=== PATIENT | female | born 1955 | race Caucasian/White ===

== ENCOUNTER 2024-02-18 07:13 | Inpatient (IN) ==
[2024-02-18] MEDS ORDERED: IOPAMIDOL 100 ML BOTTLE IV ONE (07:14)
[2024-02-18] MEDS: methylPREDNISolone SOD SUCC 125 MG/2 ML VIAL IV ONE (07:46)
[2024-02-18 08:02] LABS: Basophils # (Auto) 0.01 K/mcL (0.00-0.30); Basophils % (Auto) 0.1 % (0.0-2.0); Eosinophils # (Auto) 0.04 K/mcL (0.00-0.70); Eosinophils % (Auto) 0.5 % (0.0-7.0); Hematocrit 40.8 % (34.1-44.9); Hemoglobin 13.7 g/dL (11.2-15.7); Lymphocytes # (Auto) 0.69 K/mcL (1.50-4.80); Lymphocytes % (Auto) 8.1 % (15.5-49.0); Mean Cell Volume 95.3 fL (80.0-100.0); Mean Corpuscular HGB Conc 33.6 g/dL (31.0-36.0); Mean Platelet Volume 9.3 fL (8.8-12.5); Monocytes # (Auto) 0.67 K/mcL (0.10-0.90); Monocytes % (Auto) 7.9 % (1.0-12.0); Neutrophils % (Auto) 83.2 % (38.0-78.0); Platelet Count 324 K/mcL (140-440); RBC 4.28 M/mcL (3.59-5.38); Red Cell Distribution Width 12.6 % (11.5-14.5); WBC 8.5 K/mcL (4.5-11.0)
[2024-02-18 08:13] LABS: ALT/SGPT 28 U/L (<40); AST/SGOT 25 U/L (<32); Albumin 3.6 gm/dL (3.2-5.2); Albumin/Globulin Ratio 1.2 (1.0-2.3); Alkaline Phosphatase 83 U/L (39-117); Bilirubin,Total 0.6 mg/dL (0.1-1.0); Blood Urea Nitrogen 12 mg/dL (8-23); Calcium 8.8 mg/dL (8.6-10.4); Carbon Dioxide 28 mmol/L (22-30); Chloride 100 mmol/L (96-108); Globulin 3.1 gm/dL (2.2-3.7); Glomerular Filtration Rate 100; Glucose 138 mg/dL (70-105)
[2024-02-18] MEDS: IPRATROPIUM/ALBUTEROL 3 ML AMPUL.NEB NEB ONE ×3 (08:15→10:36)
[2024-02-18] MEDS: cefTRIAXone 2 GM in DEXTROSE 5% IN WATER 50 ML IV ONE (09:05)
[2024-02-18] MEDS: AZITHROMYCIN 250 MG TABLET PO ONE (09:05)
[2024-02-18 09:19] LABS: ABG Methemoglobin 0.1 % (0.4-1.5); Total Hemoglobin 14.3 gm/Dl (12.0-15.0); VBG Base Excess 2 (-2-3); VBG HCO3 28.8 mmol/L (24.0-28.0); VBG Oxygen Saturation 60.2 % (40.0-70.0); VBG PCO2 51.6 mmHg (41.0-51.0); VBG PH 7.37 U (7.32-7.42); VBG PO2 31.6 mmHg (25.0-40.0); VBG Total CO2 30.4 mmol/L (25.0-29.0)
[2024-02-18] MEDS: diphenhydrAMINE 50 MG/ML VIAL ONE (09:36)
[2024-02-18] MEDS: diphenhydrAMINE 50 MG/ML VIAL IV ONE (09:36)
[2024-02-18] MEDS: OSELTAMIVIR PHOSPHATE 75 MG CAPSULE PO ONE (11:44)
[2024-02-18 14:02] LABS: C-Reactive Protein 9.62 mg/dL (0.03-0.80)
[2024-02-18] MEDS ORDERED: SENNOSIDES 1 TABLET PO PRN ×2 (15:14→15:30)
[2024-02-18] MEDS ORDERED: ONDANSETRON 4 MG/2 ML VIAL IV PRN (15:14)
[2024-02-18] MEDS ORDERED: MAGNESIUM HYDROXIDE 30 ML ORAL.SUSP PO PRN (15:14)
[2024-02-18] MEDS ORDERED: ACETAMINOPHEN 325 MG TABLET PO PRN (15:14)
[2024-02-18] MEDS: IPRATROPIUM/ALBUTEROL 3 ML AMPUL.NEB NEB SCH (16:12)
[2024-02-18 16:48] LABS: ALT/SGPT 28 U/L (<40); AST/SGOT 21 U/L (<32); Albumin 3.7 gm/dL (3.2-5.2); Albumin/Globulin Ratio 1.3 (1.0-2.3); Alkaline Phosphatase 82 U/L (39-117); Bilirubin,Total 0.3 mg/dL (0.1-1.0); Blood Urea Nitrogen 13 mg/dL (8-23); C-Reactive Protein 9.43 mg/dL (0.03-0.80); Calcium 9.6 mg/dL (8.6-10.4); Carbon Dioxide 29 mmol/L (22-30); Chloride 102 mmol/L (96-108); Globulin 2.9 gm/dL (2.2-3.7); Glomerular Filtration Rate 107; Glucose 174 mg/dL (70-105)
[2024-02-18] MEDS ORDERED: ENOXAPARIN 30 MG/0.3 ML SYRINGE SQ SCH (21:00)
[2024-02-18] MEDS: OSELTAMIVIR PHOSPHATE 75 MG CAPSULE PO SCH (21:59)
[2024-02-18] MEDS: ENOXAPARIN 40 MG/0.4 ML SYRINGE SQ SCH (21:59)
[2024-02-18] MEDS: MELATONIN 3 MG TABLET PO SCH (21:59)
[2024-02-18] MEDS: DOCUSATE SODIUM 100 MG CAPSULE PO SCH (22:00)
[2024-02-18] MEDS: 0.9 % SODIUM CHLORIDE 10 ML SYRINGE IV SCH (22:00)
[2024-02-19 06:52] LABS: C-Reactive Protein 6.46 mg/dL (0.03-0.80)
[2024-02-19 07:12] LABS: ALT/SGPT 25 U/L (<40); AST/SGOT 20 U/L (<32); Albumin 3.3 gm/dL (3.2-5.2); Albumin/Globulin Ratio 1.3 (1.0-2.3); Alkaline Phosphatase 74 U/L (39-117); Bilirubin,Total < 0.2 mg/dL (0.1-1.0); Blood Urea Nitrogen 19 mg/dL (8-23); Calcium 9.4 mg/dL (8.6-10.4); Carbon Dioxide 27 mmol/L (22-30); Chloride 103 mmol/L (96-108); Globulin 2.5 gm/dL (2.2-3.7); Glomerular Filtration Rate 107; Glucose 140 mg/dL (70-105)
[2024-02-19 07:26] LABS: Basophils # (Auto) 0 K/mcL (0.00-0.30); Basophils % (Auto) 0 % (0.0-2.0); Eosinophils # (Auto) 0 K/mcL (0.00-0.70); Eosinophils % (Auto) 0 % (0.0-7.0); Hematocrit 36.1 % (34.1-44.9); Lymphocytes # (Auto) 0.76 K/mcL (1.50-4.80); Mean Cell Volume 96.3 fL (80.0-100.0); Mean Corpuscular HGB Conc 33.2 g/dL (31.0-36.0); Mean Platelet Volume 9.8 fL (8.8-12.5); Monocytes # (Auto) 0.67 K/mcL (0.10-0.90); Monocytes % (Auto) 5.3 % (1.0-12.0); Neutrophils % (Auto) 88.5 % (38.0-78.0); Platelet Count 354 K/mcL (140-440); RBC 3.75 M/mcL (3.59-5.38); Red Cell Distribution Width 12.5 % (11.5-14.5); WBC 12.8 K/mcL (4.5-11.0)
[2024-02-19] MEDS: methylPREDNISolone SOD SUCC 40 MG/ML VIAL IV SCH ×2 (08:36→19:59)
[2024-02-19] MEDS: VILANTEROL INH SCH (08:37)
[2024-02-19] MEDS: FLUTICASONE FUROATE INH SCH (08:37)
[2024-02-19] MEDS: UMECLIDINIUM INH SCH (08:37)
[2024-02-19] MEDS: MELATONIN 3 MG TABLET PO SCH (19:41)
[2024-02-19] MEDS: SIMETHICONE 80 MG TAB.CHEW CHEWED SCH (21:01)
[2024-02-20 07:38] LABS: Basophils # (Auto) 0.01 K/mcL (0.00-0.30); Basophils % (Auto) 0.1 % (0.0-2.0); Eosinophils # (Auto) 0 K/mcL (0.00-0.70); Eosinophils % (Auto) 0 % (0.0-7.0); Hematocrit 38.9 % (34.1-44.9); Hemoglobin 12.7 g/dL (11.2-15.7); Lymphocytes # (Auto) 0.83 K/mcL (1.50-4.80); Lymphocytes % (Auto) 5.9 % (15.5-49.0); Mean Cell Volume 97.7 fL (80.0-100.0); Mean Corpuscular HGB Conc 32.6 g/dL (31.0-36.0); Mean Platelet Volume 9.5 fL (8.8-12.5); Monocytes # (Auto) 0.65 K/mcL (0.10-0.90); Monocytes % (Auto) 4.6 % (1.0-12.0); Platelet Count 412 K/mcL (140-440); RBC 3.98 M/mcL (3.59-5.38); Red Cell Distribution Width 12.9 % (11.5-14.5); WBC 14.1 K/mcL (4.5-11.0)
[2024-02-20 08:08] LABS: C-Reactive Protein 2.88 mg/dL (0.03-0.80)
[2024-02-20 08:18] LABS: ALT/SGPT 27 U/L (<40); AST/SGOT 19 U/L (<32); Albumin 3.5 gm/dL (3.2-5.2); Albumin/Globulin Ratio 1.3 (1.0-2.3); Alkaline Phosphatase 88 U/L (39-117); Bilirubin,Total < 0.2 mg/dL (0.1-1.0); Blood Urea Nitrogen 18 mg/dL (8-23); Calcium 9.6 mg/dL (8.6-10.4); Carbon Dioxide 28 mmol/L (22-30); Chloride 103 mmol/L (96-108); Globulin 2.6 gm/dL (2.2-3.7); Glomerular Filtration Rate 100; Glucose 144 mg/dL (70-105)
[2024-02-21 06:59] LABS: Basophils # (Auto) 0.01 K/mcL (0.00-0.30); Basophils % (Auto) 0.1 % (0.0-2.0); Eosinophils # (Auto) 0.06 K/mcL (0.00-0.70); Eosinophils % (Auto) 0.5 % (0.0-7.0); Hematocrit 39.7 % (34.1-44.9); Hemoglobin 12.7 g/dL (11.2-15.7); Lymphocytes # (Auto) 1.44 K/mcL (1.50-4.80); Lymphocytes % (Auto) 12.8 % (15.5-49.0); Mean Cell Volume 98.8 fL (80.0-100.0); Mean Platelet Volume 8.8 fL (8.8-12.5); Monocytes # (Auto) 0.89 K/mcL (0.10-0.90); Monocytes % (Auto) 7.9 % (1.0-12.0); Neutrophils % (Auto) 76.9 % (38.0-78.0); Platelet Count 391 K/mcL (140-440); RBC 4.02 M/mcL (3.59-5.38); Red Cell Distribution Width 12.8 % (11.5-14.5); WBC 11.2 K/mcL (4.5-11.0)
[2024-02-21 07:24] LABS: ALT/SGPT 24 U/L (<40); AST/SGOT 25 U/L (<32); Albumin 3.2 gm/dL (3.2-5.2); Albumin/Globulin Ratio 1.4 (1.0-2.3); Alkaline Phosphatase 87 U/L (39-117); Bilirubin,Total < 0.2 mg/dL (0.1-1.0); Blood Urea Nitrogen 18 mg/dL (8-23); C-Reactive Protein 1.34 mg/dL (0.03-0.80); Calcium 8.6 mg/dL (8.6-10.4); Carbon Dioxide 28 mmol/L (22-30); Chloride 105 mmol/L (96-108); Globulin 2.3 gm/dL (2.2-3.7); Glomerular Filtration Rate 100; Glucose 103 mg/dL (70-105)
[2024-02-21] MEDS: predniSONE 20 MG TABLET PO SCH (08:26)
[2024-02-21] MEDS ORDERED: methylPREDNISolone SOD SUCC 40 MG/ML VIAL IV SCH (09:00)
== END 2024-02-21 12:35 | disposition home or self-care (01) | DRG 193 ==
LOC: ED 07:13 → MEDSUR 15:05
PROVIDERS: ADMIT Student in an Organized Health Care Education/Training Program; ATTEND Student in an Organized Health Care Education/Training Program